=== PATIENT | female | born 1940 | race Caucasian/White ===

== ENCOUNTER → 2018-06-30 | Emergency (ER) | payer MEDICARE, OTHER ==
[~2018-06-30] VITALS: Ht 167.6 cm; Wt 64.0 kg
[~2018-06-30] MED LIST: AZIT250T27 PO; NITR100C6 PO; azithromycin 250mg tablet PO ONE; nitrofuran/nitrofuran macrocrysal 100 MG capsule PO ONE
[2018-06-30 16:51] LABS: BASOPHILS # (AUTO) 0.1 X10'3 (0-0.2); BASOPHILS % (AUTO) 0.5 % (0-1); EOSINOPHILS # (AUTO) 0.1 X10'3 (0-0.9); HEMATOCRIT 38.4 % (35.0-45.0); HEMOGLOBIN 12.8 g/dl (12.0-16.0); LYMPHOCYTES # (AUTO) 1.4 X10'3 (1.1-4.8); LYMPHOCYTES % (AUTO) 12.6 % (21-51); MEAN CORPUSCULAR HEMOGLOBIN 31.3 PG (27.0-31.0); MEAN CORPUSCULAR HGB CONC 33.2 g/dL (33.0-36.5); MEAN CORPUSCULAR VOLUME 94.2 FL (78-98); MEAN PLATELET VOLUME 8.8 FL (7.4-10.4); MONOCYTES % (AUTO) 9.1 % (2-12); NEUTROPHILS # (AUTO) 8.5 X10'3 (1.8-7.7); NEUTROPHILS % (AUTO) 76.8 % (42-75); PLATELET COUNT 237 X10'3 (140-440); RED BLOOD COUNT 4.07 X10'6 (4.20-5.60); RED CELL DISTRIBUTION WIDTH 12.6 % (11.5-14.5)
[2018-06-30 17:00] LABS: ALANINE AMINOTRANSFERASE 19 U/L (12-78); ALBUMIN 3.3 G/DL (3.4-5.0); ALBUMIN/GLOBULIN RATIO 0.8 (1.1-1.5); ALKALINE PHOSPHATASE 73 IU/L (46-116); ANION GAP 6 (8-16); ASPARTATE AMINO TRANSFERASE 19 U/L (10-37); BILIRUBIN,TOTAL 0.6 MG/DL (0.1-1.0); BLOOD UREA NITROGEN 14 MG/DL (7-18); BUN/CREATININE RATIO 14.4 (6.6-38.0); CALCIUM 9.2 MG/DL (8.5-10.1); CHLORIDE 101 MMOL/L (99-107); CREATININE 0.97 MG/DL (0.40-0.90); GLUCOSE 92 MG/DL (70-104); POTASSIUM 4.5 MMOL/L (3.5-5.1); SODIUM 135 MMOL/L (135-145); TOTAL CARBON DIOXIDE 27.8 MMOL/L (24-32); TOTAL PROTEIN 7.6 G/DL (6.4-8.2); eGFR 56 ML/MIN
[2018-06-30 17:04] LABS: PARTIAL THROMBOPLASTIN TIME 28 SECONDS (22-32)
[2018-06-30 18:17] VITALS: BP 120/89
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
[2018-06-30 18:30] LABS: CLARITY,URINE SLIGHTLY CLOUDY (Clear); COLOR,URINE YELLOW (Yellow); GLUCOSE, URINE NEGATIVE (Neg); KETONES,URINE 15 mg/dl (Neg); LEUKOCYTE ESTERASE ,URINE LARGE (Neg); NITRITES, URINE NEGATIVE (Neg); OCCULT BLOOD,URINE NEGATIVE (Neg); PROTEIN,URINE TRACE mg/dl (Neg); UROBILINOGEN,URINE 0.2 E.U/dL (0.2-1.0)
[2018-06-30 18:32] LABS: UA COLLECTION TYPE CLN CATCH MIDSTREAM
[2018-06-30 18:39] LABS: MUCUS STRANDS MODERATE /LPF (Neg)
[2018-06-30 18:40] LABS: HYALINE CASTS 0-3 /LPF (NEGATIVE); SQUAMOUS EPITHELIAL CELL,UR FEW /LPF (FEW)
[2018-06-30 18:53] LABS: WBC CLUMPS,URINE FEW /HPF (NEGATIVE); WBC,URINE 30-50 /HPF (0-4)
[2018-06-30 18:54] LABS: BACTERIA,URINE 2+ /HPF (Neg); RBC,URINE 0-2 /HPF (0-2)
--- NOTE | 2018-06-30 19:18 | NUR ---
Pt requested food-was provided sandwich, string cheese, and milk and provided warm blanket. Pt had no further questions.
== END | disposition home or self-care (01) ==
LOC: ER 15:57
DX: J18.9 Pneumonia, unspecified organism (principal); N39.0 Urinary tract infection, site not specified; Z79.899 Other long term (current) drug therapy
CPT/HCPCS: 36415; 71045; 80053; 81001; 83605; 84484; 85025; 85610; 85730; 87077; 87088; 87186; 93005; 99284

== ENCOUNTER 2022-05-06 09:27 | Emergency (ER) | payer MEDICARE ==
[~2022-05-06] VITALS: Ht 160 cm; Wt 61.8 kg
[~2022-05-06 09:27] MED LIST changes: -azithromycin 250mg tablet PO ONE; -nitrofuran/nitrofuran macrocrysal 100 MG capsule PO ONE
[2022-05-06 09:34] VITALS: BP 104/56
[2022-05-06] MEDS ORDERED: acetaminophen 325mg tablet PO ONE (11:10)
== END 2022-05-06 14:10 | disposition home or self-care (01) ==
LOC: ER 09:27
DX: S00.83XA Contusion of other part of head, initial encounter (principal); X58.XXXA Exposure to other specified factors, initial encounter; Y93.89 Activity, other specified; Y92.89 Other specified places as the place of occurrence of the external cause; Y99.8 Other external cause status
CPT/HCPCS: 70450; 71045; 72125; 99284

== ENCOUNTER 2022-05-23 17:48 | Emergency (ER) | payer MEDICARE ==
[~2022-05-23] VITALS: Ht 167.6 cm; Wt 60.0 kg
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
[2022-05-23 19:18] VITALS: BP 120/64
== END 2022-05-23 19:20 | disposition home or self-care (01) ==
LOC: ER 17:49
DX: S80.12XA Contusion of left lower leg, initial encounter (principal); X58.XXXA Exposure to other specified factors, initial encounter; Y93.89 Activity, other specified; Y92.89 Other specified places as the place of occurrence of the external cause; Y99.8 Other external cause status
CPT/HCPCS: 93971; 99284

== ENCOUNTER 2023-11-21 10:15 | Emergency (ER) | payer MEDICARE ==
[~2023-11-21] VITALS: Ht 167.6 cm; Wt 61.6 kg
[2023-11-21 11:45] VITALS: BP 132/78; PULSE 78; TEMP 98.1; O2SAT 97
[2023-11-21 11:46] VITALS: RESP 16
== END 2023-11-21 11:50 | disposition home or self-care (01) ==
LOC: ER 10:15
DX: M25.562 Pain in left knee (principal); Z01.810 Encounter for preprocedural cardiovascular examination; G89.29 Other chronic pain; Z79.2 Long term (current) use of antibiotics; Z79.899 Other long term (current) drug therapy
CPT/HCPCS: 93005; 99283